=== PATIENT | female | born 1950 | race Caucasian/White ===

== ENCOUNTER 2016-12-26 14:52 | Inpatient (IN) | payer MEDICARE ==
--- NOTE | 2016-12-26 15:30 | NUR ---
PT ARRIVED TO ROOM, DIRECT ADMIT. PT ALERT AND ORIENTED WILL ADMIT
[2016-12-26] MEDS ORDERED: LANTUS INSULIN10 ML SC (15:50)
[2016-12-26] MEDS ORDERED: PHOSLO667 MG PO (15:50)
[2016-12-26] MEDS ORDERED: IPRATROPIUM BR42 MCG NASAL (15:50)
[2016-12-26] MEDS ORDERED: NEURONTIN600 MG PO (15:51)
[2016-12-26] MEDS ORDERED: SENSIPAR30 MG PO (15:51)
[2016-12-26] MEDS ORDERED: CLARITIN 10 MG10 MG PO (15:51)
[2016-12-26] MEDS ORDERED: HYDRALAZINE HCL25 MG PO (15:52)
[2016-12-26] MEDS ORDERED: CHRONULAC30 ML PO (15:52)
[2016-12-26] MEDS ORDERED: NEPHRO-VITE RX1 TAB PO (15:53)
[2016-12-26] MEDS ORDERED: MULTIPLE VITAMI1 TA1 PO (15:53)
[2016-12-26] MEDS ORDERED: METOPROLOL TART50 MG PO (15:53)
[2016-12-26] MEDS ORDERED: RENAGEL800 MG PO (15:53)
[2016-12-26] MEDS ORDERED: PROTONIX40 MG PO (15:53)
[2016-12-26] MEDS ORDERED: PLAVIX75 MG PO (15:53)
[2016-12-26] MEDS ORDERED: DULCOLAX10 MG/SUPP RC (15:54)
[2016-12-26] MEDS ORDERED: COLACE100 MG PO (15:54)
[2016-12-26] MEDS ORDERED: NYSTATIN1 PWD TOPICAL (15:55)
[2016-12-26] MEDS ORDERED: MIRALAX17 GM PO (15:55)
[2016-12-26] MEDS ORDERED: HYDROCODONE-APA1 TAB PO (15:55)
[2016-12-26 15:56] VITALS: BP 160/84; BMI 31.1
--- NOTE | 2016-12-26 16:08 | NUR ---
DURING ADMISSION ASSESSMENT SEVERAL WOUNDS NOTED. BUTTOCK/COCCYX AREA, REDNESS AND STG 2 NOTED. APPLIED MEPELEX BANADAGE. CDI LEFT HEEL UNSTAGEABLE PU ENTIRE SURFACE OF PT HEEL. CLEANSED WITH WOUND PRIMARY CARE PROVIDER. APPLIED ADAPTIC AND DRESSED WITH 4X4 AND CURLEX. R AKA STUMP WITH INCISION NO S/S INFECTION. APPLIED CLEAN GAUZE. ALL SIGNED AND DATED
[2016-12-26 16:18] LABS: BASOPHILS 0.3 % (0-2); EOSINOPHILS 4.9 % (0-7); HEMATOCRIT 41.6 % (36.0-48.0); HEMOGLOBIN 12.5 g/dL (12-16); IMMATURE GRANULOCYTES 0.3 % (0-5); LYMPHOCYTES 28.3 % (15-50); MCH 30.1 pg (26.0-34.0); MCV 100.2 fL (80.0-100.0); MEAN PLATELET VOLUME 9.7 fL (7.4-10.4); MONOCYTES 10.4 % (2-11); NEUTROPHILS 55.8 % (40-80); PLATELET COUNT 196 10x3/uL (130-400); RBC 4.15 10x6/uL (4.00-5.40); RDW 17.8 % (11.5-14.5); WBC 6.2 10x3/uL (4.8-10.8)
[2016-12-26 16:43] VITALS: BP 184/62
--- NOTE | 2016-12-26 16:58 | NUR ---
PT SITTING UP IN BED DENIES NEEDS
[2016-12-26 17:00] LABS: ANION GAP 17.5 mmol/L (8-16); CARBON DIOXIDE 21.1 mmol/L (21.0-32.0)
[2016-12-26 17:05] LABS: POTASSIUM - SERUM 6.6 mmol/L (3.5-5.1)
--- NOTE | 2016-12-26 17:48 | NUR ---
JESUS ATTEMPTED IV. THIS FRETTED STRING INSTRUMENT REPAIRER ALSO ATTEMPTED IV. VERONICA CHO CALLED AND ORDER RECEIVE FOR CONSULT FOR TRIALYSIS CATH.
--- NOTE | 2016-12-26 18:04 | NUR ---
LAB CALLED WITH CRITICAL K OF 6.6. ALBA URBINA NOTIFIED AND GAVE ORDERS. PT IS WITHOUT IV ACCESS AND UNABLE TO OBTAIN. DR MEIER CONSULTED FOR TRIALYSIS CATH PLACEMENT. HAVE TRIED BOTH NUMBERS WE HAVE ON FILE FOR HIM ARE NOT WORKING.... CALLED LAURIE RYAN AND NOTIFIED HER, SHE SAID TO ASK L[place]NA IN ER FOR NUMBER. SHE HAD HIS CELL PHONE TO CALL. VOICEMAIL. LEFT A MESSAGE TO CALL US BACK AT THE HOSPITAL. SHE ALSO GAVE ME A HOME PHONE NUMBER. CALLED THAT WELL WITH NO ANSWER. WILL AWAIT A CALL BACK
[2016-12-26 20:30] VITALS: BP 194/73
--- NOTE | 2016-12-26 20:31 | NUR ---
PHONE CALL FROM ALBA URBINA APN AND ORDERS TO MAKE SURE PT HAS TAKEN HER KAYEXALATE AND TO CONTINUE TO TRY TO GET IV ACCESS. CHANGE IV LASIX TO LASIX 80MG BY MOUTH FOR TONIGHT. ALBA STATES SHE MADE CONTACT WITH DR MEIER AND HE WILL NOT BE ABLE TO COME IN TONIGHT AND PLACE DIALYSIS ACCESS. CALL RECIEVED FROM DR MEIER STATING PT TO BE NPO AT MIDNIGHT. SIGN CONSENTS FOR TRIALYSIS PLACEMENT IN AM AND THEN PT CAN BE DIALYZED AND THEN HAVE HER FISTULAGRAM IN THE AFTERNOON.
--- NOTE | 2016-12-26 20:49 | NUR ---
ATTEMPTED TO SITE IV X 1 ATTEMPT. PT YELLING OUT, SAYING "ENOUGH!" THAT SHE HAS BEEN STUCK 9 TIMES TODAY AND WILL NOT TOLERATE IT ANYMORE. EXPLAINED THE IMPORTANCE OF GETTING IV ACCESS. PT TOO ANGRY TO CARE AT THIS POINT. WILL ALLOW HER TO CALM DOWN.
[2016-12-27 01:44] VITALS: BP 156/54
[2016-12-27 04:40] VITALS: BP 183/62
[2016-12-27 05:57] LABS: BASOPHILS 0.1 % (0-2); EOSINOPHILS 5.1 % (0-7); HEMATOCRIT 41.1 % (36.0-48.0); HEMOGLOBIN 12.8 g/dL (12-16); IMMATURE GRANULOCYTES 0.4 % (0-5); LYMPHOCYTES 23.1 % (15-50); MCH 31.2 pg (26.0-34.0); MCHC 31.1 g/dL (31.0-37.0); MCV 100.2 fL (80.0-100.0); MEAN PLATELET VOLUME 9.4 fL (7.4-10.4); MONOCYTES 12.5 % (2-11); NEUTROPHILS 58.8 % (40-80); RDW 17.8 % (11.5-14.5); WBC 6.9 10x3/uL (4.8-10.8)
[2016-12-27 06:13] LABS: PLATELET COUNT 256 10x3/uL (130-400)
[2016-12-27 06:22] LABS: ANION GAP 19.4 mmol/L (8-16); CALCIUM 7.3 mg/dL (8.5-10.1); CARBON DIOXIDE 21.2 mmol/L (21.0-32.0)
[2016-12-27 06:32] LABS: POTASSIUM - SERUM 6.6 mmol/L (3.5-5.1)
--- NOTE | 2016-12-27 07:01 | NUR ---
PT SIGNED TWO NEW SETS OF CONSENTS, ONE FOR TRIALYSIS TO BE DONE THIS AM PER DR MEIER AND A SECOND SET OF CONSENTS TO BE DONE AFTER SHE HAS BEEN DIALYZED, THEN SHE WILL HAVE THE FISTULAGRAM DONE. PT VOICED UNDERSTANDING.
[2016-12-27 09:15] VITALS: BP 213/76
[2016-12-27 13:51] VITALS: BMI 31.1
[2016-12-27 16:00] VITALS: BP 147/98
--- NOTE | 2016-12-27 17:00 | NUR ---
CANCELS FISTULAGRAM THROMBECTOMY. RESCHEDULE FOR 12/28/16. INFORM PATIENT OF CHANGE OF PLANS. PATIENT BEGINS CRYING. OFFER FOOD. REFUSE FOOD. WISHES TO GO HOME. EXPLAIN PROCEDURE PLANNED IN THE MORNING. CONTINUE PLAN OF CARE AND SAFETY PRECAUTIONS.
--- NOTE | 2016-12-27 19:38 | NUR ---
PT IN BED WITH EYES CLOSED AND CHEST RISING. EASILY AROUSED TO VERBAL STIMULI. NO CONCERNS NOTED AT THIS TIME. CALL LIGHT IN REACH. WILL CONTINUE TO OBSERVE.
[2016-12-27 20:00] VITALS: BP 171/74
--- NOTE | 2016-12-27 23:45 | NUR ---
PT IN BED WITH EYES CLOSED AND CHEST RISING. EASILY AROUSED AND CHEST RISING. NO CONCERNS NOTED AT THIS TIME. CALL LIGHT IN REACH. WILL CONTINUE TO OBSERVE.
[2016-12-28 04:00] VITALS: BP 165/52
[2016-12-28 08:19] LABS: BASOPHILS 0.3 % (0-2); EOSINOPHILS 2.6 % (0-7); HEMATOCRIT 42.6 % (36.0-48.0); HEMOGLOBIN 13.1 g/dL (12-16); IMMATURE GRANULOCYTES 0.4 % (0-5); LYMPHOCYTES 23.9 % (15-50); MCH 30.5 pg (26.0-34.0); MCHC 30.8 g/dL (31.0-37.0); MCV 99.1 fL (80.0-100.0); MEAN PLATELET VOLUME 9.3 fL (7.4-10.4); NEUTROPHILS 57.8 % (40-80); RDW 17.3 % (11.5-14.5)
[2016-12-28 08:24] LABS: PLATELET COUNT 195 10x3/uL (130-400)
[2016-12-28 08:35] VITALS: BP 167/60
[2016-12-28 08:47] LABS: ANION GAP 18.3 mmol/L (8-16); CALCIUM 8.4 mg/dL (8.5-10.1); CARBON DIOXIDE 21.4 mmol/L (21.0-32.0); POTASSIUM - SERUM 5.7 mmol/L (3.5-5.1)
--- NOTE | 2016-12-28 11:47 | NUR ---
FSBS OBTAINED WITH ANCHORAGE FOREIGN STUDENT ADVISER. BS 102. REPORTED TO NURSE CARING FOR THIS PATIENT TODAY.
[2016-12-28 12:40] VITALS: BP 116/76
--- NOTE | 2016-12-28 14:08 | NUR ---
ALERT AND ORIENTED X4. BATH AND LINEN CHANGE COMPLETE. PRE-OP COMPLETE. TRANSPORT TO SURGERY VIA BED. CONTINUE PLAN OF CARE AND SAFETY PRECAUTIONS.
--- NOTE | 2016-12-28 14:25 | OP ---
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 OPERATION PERFORMED: Insertion of a Trialysis acute dialysis catheter via left internal jugular vein with ultrasound and fluoroscopic guidance. SURGEON: Cristian Meier MD ANESTHESIA: Local with monitored per CORPORATE WEBMASTER, local was 1% lidocaine without epinephrine. PREOPERATIVE NOTE: This 66-year-old debilitated white female on chronic hemodialysis with a left arm fistula has suffered thrombosis due to a recurrent severe stenosis of the cephalic arch. Dr. Dobson successfully dilated and stented this cephalic arch lesion yesterday, but when he was dilating another stenosis in the proximal cephalic vein, the vein ruptured and the fistula re-thrombosed. She was admitted to the hospital with plans to take her to the operating room today to salvage the fistula with mechanical thrombectomy and stenting of the ruptured segment. She is, however, at this time hyperkalemic and needs to dialyze and will be brought to the OR now for placement of a Trialysis catheter. Hopefully, she can dialyze right away and be returned to the operating room later today for the declotting procedure. DESCRIPTION OF PROCEDURE: With the patient in the supine position, she was prepped and draped in a sterile manner. I examined the right internal jugular vein first with ultrasound and found it to be thrombosed and sclerotic above the level of head of the clavicle. There was no lumen apparent and I elected to go to the left side where the jugular vein was normal in appearance and fully compressible of normal caliber. Local anesthetic was infiltrated into the skin and subcutaneous tissues. A adri in the skin was made with an 11 blade and under continuous ultrasound guidance, a needle and guidewire were inserted into the left internal jugular vein and under fluoroscopy advanced into the right atrium. Two serial dilators were passed over the guidewire under fluoroscopy and lastly a 20-cm Trialysis catheter was inserted. Its tip reached into the mid right atrium and it had a good alignment and position. All 3 lumens were aspirated and free return of blood from each was confirmed. They were then flushed with saline and then heparin locked, clamped, and capped. The catheter was sutured to the skin at the entry site with 2-0 Prolene and a standard central venous dressing applied. The patient was then taken back to her room in stable condition and will go on to dialysis this morning. TRANSINT:[id number] Voice Confirmation ID: [id number] DOCUMENT ID: [id number] OPERATIVE REPORT [id number] DAVION RICHARDSON, CRISTIAN BEAVER at 1425 CC: DUSTY DOBSON MD [id number] DICTATION DATE: 12/27/1628 SILVERWARE BUFFER: 12/27/16 1121 ADM IN [facility] [address] [place] [address]
--- NOTE | 2016-12-28 15:45 | NUR ---
1503: PT HAS A RIGHT LEG BELOW KNEE AMPUTATION, AND LEFT FOOT WAS BANDADHED UP TO ANKLE. SCDS NOT PLACED ON PT TO NOT IRRITATE THE WOUND ON LEFT FOOT.
[2016-12-28 18:14] VITALS: BP 139/79
--- NOTE | 2016-12-28 18:14 | NUR ---
ARRIVE TO ROOM FROM SURGERY. LT FISTULAGRAM UNSUCCESSFUL THROMBECTOMY. LT CHEST TRIALYSIS REMOVED AND LT CHEST HEMOSPLIT PLACED. BP-139/79, P-77, R-20, T-98.8, O2-97% 2L NC. DENIES ANY NEEDS. BED LOCKED AND LOW. ICE PACK PLACED ON LT ARM ORDERED. CALL LIGHT IN REACH. TWO SIDERAILS UP.
[2016-12-28 19:00] VITALS: BP 217/78
--- NOTE | 2016-12-29 02:26 | NUR ---
CALL LIGHT IN REACH. WILL CONTINUE WITH PLAN OF CARE.
--- NOTE | 2016-12-29 07:10 | NUR ---
AM ROUNDS- PT IN BED, WITH EYES CLOSED, AROUSES EASILY TO VOICE. RESP EVEN AND UNLABORED. RT HAND IV SL. DRESSING NOTED TO LT ANKLE, PT DENIES ANY NEEDS AT THIS TIME. CALL LIGHT IN REACH, NAD NOTED, WILL CONTINUE TO MONITOR.
[2016-12-29 08:25] LABS: HEPATITIS C ANTIBODY 0.1 (0.0-0.9)
[2016-12-29 10:22] VITALS: BP 158/39
[2016-12-29 12:08] VITALS: BP 177/64
--- NOTE | 2016-12-29 13:21 | NUR ---
PROVIDED PT WITH ANOTHER PILLOW, AND PLACED IT UNDER HER HEAD. PT DENIES ANY NEEDS AT THIS TIME. NAD NOTED, WILL CONTINUE TO MONITOR.
--- NOTE | 2016-12-29 15:00 | NUR ---
PT C/O EARACHE, WANTS SOMETHING FOR PAIN, STATES IT STARTED THIS AM, BUT SHE IS JUST NOW INFORMING ME. DR. MYERS NOTIFIED, DR. MYERS STATED TO ORDER TYLENOL FOR PAIN. WILL PUT ORDER IN.
--- NOTE | 2016-12-29 17:27 | NUR ---
ADMINISTERED 650MG OF TYLENOL FOR PAIN LEVEL OF 8/10. BLOOD SUGAR OF 179. PT IN BED EATING DINNER, DENIES ANY OTHER NEEDS AT THIS TIME. CALL LIGHT IN REACH, NAD NOTED.
--- NOTE | 2016-12-29 19:16 | NUR ---
PATIENT IS ASLEEP IN BED, CALL LIGHT IN REACH.
[2016-12-29 20:00] VITALS: BP 142/81
[2016-12-30] VITALS: BP 190/74
--- NOTE | 2016-12-30 05:40 | NUR ---
LYING IN BED WITH CALL LIGHT IN REACH. WILL CONTINUE WITH PLAN OF CARE.
--- NOTE | 2016-12-30 06:45 | NUR ---
LAB TO BE DRAWN DURING DIALYSIS PER PT REQUEST AFTER UNSUCCESSFUL MANGLE ROLL OPERATOR ATTEMPT.
--- NOTE | 2016-12-30 07:54 | NUR ---
PT LAYING TO LEFT SIDE SLEEPING NO S/S DISTRESS NOTED RR EVEN AND UNLABORED. WILL CONT TO MONITOR
[2016-12-30 08:00] VITALS: BP 153/45
--- NOTE | 2016-12-30 09:00 | NUR ---
DRESSING CHANGE TO LEFT HEEL PER ORDER. [facility] CDI, SIGNED AND DATED.
--- NOTE | 2016-12-30 11:00 | NUR ---
PT TO DIALYSIS
--- NOTE | 2016-12-30 12:00 | NUR ---
LAB CALLED AND ASKED IF PTS LAB TUBES WERE SENT DOWN WITH HER TO DIALYSIS. EXPLAINED TO MAINTENANCE PERSON THAT NO TUBES HAD BEEN GIVEN TO ME AND I DIDNT SEE ANY IN PT ROOM OR IN HER BED. THEY SAID THEY WOULD GO DOWN TO DIALYSIS AND GET LAB DRAW, PT STILL IN DIALYSIS.
--- NOTE | 2016-12-30 13:26 | NUR ---
PT STILL IN DIALYSIS. PT TO GO HOME TODAY TO [place] IN [facility].
--- NOTE | 2016-12-30 13:58 | NUR ---
LAB JUST CALLED AGAIN AND ASKED AGAIN IF I HAD THE TUBES AND IF I SENT THEM DOWN WITH PT TO DIALYSIS. EXPLAINED TO THIS DIRECTOR OF PRODUCT MARKETING THAT SOMEONE JUST CALLED AND ASKED THE SAME QUESTION AND SAID THAT SHE WAS GOING TO GO DOWN AND GET THEM DRAWED. SHE SAID THAT SHE IS THE AFTERNOON SHIFT AND THAT WAS MORNING SHIFT, SO SHE WILL DOUBLE CHECK
[2016-12-30 14:27] LABS: BASOPHILS 0.2 % (0-2); EOSINOPHILS 3.2 % (0-7); HEMATOCRIT 41.7 % (36.0-48.0); HEMOGLOBIN 12.9 g/dL (12-16); IMMATURE GRANULOCYTES 0.2 % (0-5); LYMPHOCYTES 20.8 % (15-50); MCH 30.5 pg (26.0-34.0); MCHC 30.9 g/dL (31.0-37.0); MCV 98.6 fL (80.0-100.0); MEAN PLATELET VOLUME 9.7 fL (7.4-10.4); MONOCYTES 13.1 % (2-11); NEUTROPHILS 62.5 % (40-80); PLATELET COUNT 168 10x3/uL (130-400); RBC 4.23 10x6/uL (4.00-5.40); RDW 16.7 % (11.5-14.5); WBC 6.3 10x3/uL (4.8-10.8)
[2016-12-30 14:44] LABS: ANION GAP 15.5 mmol/L (8-16); CALCIUM 8.5 mg/dL (8.5-10.1); CARBON DIOXIDE 26.1 mmol/L (21.0-32.0); CREATININE - SERUM 3.1 mg/dL (0.6-1.3); POTASSIUM - SERUM 3.6 mmol/L (3.5-5.1)
--- NOTE | 2016-12-30 16:01 | NUR ---
CALLED REPORT TO LIANA AT [facility].
--- NOTE | 2016-12-30 16:09 | NUR ---
WENT OVER DC PAPERWORK WITH PT, PT VERBALIZES UNDERSTANDING. PT IS WITHOUT IV ACCESS OR TELE TO DC. PT DRESSED AND READY TO GO. REPORT ALREADY CALLED. JUST WAITING ON DRIVER'S LICENSE EXAMINER TO PICK PT UP TO GO BACK [facility] OR IN [facility].
[2016-12-30 18:02] VITALS: BP 175/71
--- NOTE | 2016-12-30 18:09 | NUR ---
PT WAS WHEELED OUT BY LOCATED WITHIN [facility]
--- NOTE | 2017-01-10 13:00 | OP ---
PATIENT NAME: DAVION MEDINA MEDICAL RECORD: [id number] :48 LOCATION:D. D.2130 ADMISSION DATE:12/26/16 SURGEON: CRISTIAN MEIER MD DATE OF OPERATION: 12/28/2016 PREOPERATIVE DIAGNOSIS: End-stage renal disease and dependence on hemodialysis and other mechanical complication, i.e., thrombosis of left arm brachiocephalic arteriovenous fistula. POSTOPERATIVE DIAGNOSIS: End-stage renal disease and dependence on hemodialysis and other mechanical complication, i.e., thrombosis of left arm brachiocephalic arteriovenous fistula. OPERATION PERFORMED: Percutaneous access of fistula times 2 with ultrasound guidance, fistulogram, AngioJet mechanical thrombolysis and balloon angioplasty, then insertion of a left internal jugular arrow vector flow tunneled dialysis catheter under fluoroscopy and removal of Trialysis catheter. SURGEON: Cristian Meier MD ANESTHESIA: General with LMA per RUBBER GOODS CUTTER FINISHER. REFERRING PHYSICIAN: Dusty Barrios MD PREOPERATIVE NOTE: Davion Medina is a 66-year-old white female, halfway resident from [place]. She has end-stage renal disease and is on chronic hemodialysis and has been dialyzing for some time now with a left brachiocephalic AV fistula. She has had surgical intervention to help with the fistula. I believe, she has had an elevation procedure of the vein a couple months ago. I dilated a severe stenosis of the cephalic arch and she returned 2 days ago to [facility] with a thrombosed AV fistula and Dr. Barrios performed a procedure and dilated and distended the cephalic arch successfully; however, during dilatation of additional stenosis within the cephalic vein, there was a vascular rupture and resultant recurrent thrombosis. She was admitted to the hospital on the following morning because her potassium was elevated. She was taken to the OR and Trialysis catheter inserted with ultrasound for fluoroscopic guidance, the catheter was inserted via the left internal jugular vein because the right internal jugular vein was occluded having been used in the past for catheter access. She had dialysis and was then returned to the operating room again yesterday afternoon to try to salvage the fistula, but the OR schedule would not permit and she was rescheduled for today. PROCEDURE: With patient under general anesthesia with LMA per RUBBER GOODS CUTTER FINISHER, she was prepped and draped in a sterile manner. The fistula was examined with ultrasound and noted to be surprisingly small or contracted and contained a large amount of rather organized or organized thrombus. I accessed the fistula near the arterial anastomosis in an antegrade direction using ultrasound guidance and micropuncture technique and this led up to placement of a 6-Bulgarian introducer sheath. I attempted to pass a guidewire proximally and was unable to get through the area of recent rupture. I tried this with an angled burned guiding catheter and an angled Glidewire and was just unsuccessful. Contrast injection demonstrated extensive thrombosis and rupture with extravasation of contrast. I then was able to access the cephalic vein medially in the shoulder area, really just lateral to the lateral end of the recently inserted cephalic arch stent and this was done with ultrasound guidance and micropuncture OPERATIVE REPORT [id number] DAVION MEDINA technique and another 6-Bulgarian sheath was inserted. An angled Glidewire was inserted again and this did pass down to the arterial anastomosis. I used the AngioJet catheter device to lyse and remove thrombus from the JA and body of the fistula after which I then was able to pass the antegrade catheter from the introducer near the arterial anastomosis across the area of rupture and extravasation and into the cephalic arch down into the central venous system. I then used an 8 mm angioplasty balloon to macerate thrombus and dilate stenoses from the cephalic arch distally towards the arterial anastomosis while occluding the arterial or Juxta arterial segment with digital compression. There were noted to be a series of stenosis present which were fibrous and dilated with considerable pressure and some incompletely. When this was done, repeated contrast injection revealed very ratty irregular vein which did not to me offer any hope for salvage of the fistula even were I to stent it extensively. I should note that very early in the process during the insertion of the 1st introducer sheath, she was systemically heparinized with 3000 units of heparin systemically. So after the balloon angioplasties and mechanical thrombolysis, I elected to terminate the procedure without ever having restored continuous pulsatile flow in the fistula. The introducer was removed and the puncture site sutured with 4-0 Prolene [id number]. The patient's Trialysis catheter and left neck and chest were then prepped and draped as well. The Trialysis catheter was removed over a guidewire and the guidewire manipulated into the right atrium. I passed a dilator and then a peel-away dilator introducer. I made a incision beneath the clavicle and brought a 23 cm HemoSplit catheter through the subcutaneous tunnel and then tried to insert it through the peelaway sheath. This was unsuccessful as the catheter and also in addition, a guidewire passed preferentially and every time up into the right brachiocephalic vein rather than down into the superior vena cava. I eventually replaced this with a modular Arrow VectorFlow catheter, which was inserted over an angled roadrunner wire down through the superior vena cava into the right atrium really without difficulty and it was then pulled through the same subcutaneous tunnel and connected to the modular part. Both lumens were aspirated, free return of blood confirmed. They were then flushed with saline and then heparin locked with heparin 100 units per cc. The catheter was sutured to the skin near the entry site with 2-0 Prolene and the incisions approximated with interrupted inverted intracuticular 3-0 Vicryl and Dermabond glue. Sterile dressings were applied and the patient then awakened and taken to the recovery room. Blood loss was about 50 cc and unreplaced. All sponges, instruments, and needles were accounted for. No drain was used and no surgical specimen was submitted for histopathology. A chest x-ray was requested for documentation purposes in the recovery room. The patient will likely have dialysis here and then be discharged to return to her halfway in [place] tomorrow. She will be catheter dependent for now with her tunneled dialysis catheter. She will need further dialysis access and it is my recommendation that she be operated on and a prosthetic graft implanted in the left upper extremity sometime in the next 2-6 weeks. TRANSINT:[id number] Voice Confirmation ID: [id number] DOCUMENT ID: [id number] OPERATIVE REPORT [id number] DAVION MEDINA, CRISTIAN BEAVER at 1300 CC: [id number] DICTATION DATE: 12/28/16 1737 GENERAL SCIENCE TEACHER: 12/28/16 1833 DIS IN 12/30/16 [facility] [address] [place] [address]
== END 2016-12-30 18:10 | DRG 252 ==
LOC: D.M2 14:52
PROVIDERS: Surgery; ADMIT Internal Medicine Nephrology
PROC: B5181ZA Fluoroscopy of Superior Vena Cava using Low Osmolar Contrast, Guidance (ICD-10-PCS; 2016-12-27)
PROC: B548ZZA Ultrasonography of Superior Vena Cava, Guidance (ICD-10-PCS; 2016-12-27)
PROC: 02HV33Z Insertion of Infusion Device into Superior Vena Cava, Percutaneous Approach (ICD-10-PCS; principal; 2016-12-27 07:00)
PROC: B51W1ZZ Fluoroscopy of Dialysis Shunt/Fistula using Low Osmolar Contrast (ICD-10-PCS; 2016-12-28)
PROC: 05CA3ZZ Extirpation of Matter from Left Brachial Vein, Percutaneous Approach (ICD-10-PCS; 2016-12-28)
PROC: 057A3ZZ Dilation of Left Brachial Vein, Percutaneous Approach (ICD-10-PCS; 2016-12-28)
PROC: 05HN33Z Insertion of Infusion Device into Left Internal Jugular Vein, Percutaneous Approach (ICD-10-PCS; 2016-12-28)
DX: T82.868A Thrombosis due to vascular prosthetic devices, implants and grafts, initial encounter (principal); N18.6 End stage renal disease; I12.0 Hypertensive chronic kidney disease with stage 5 chronic kidney disease or end stage renal disease; Y83.8 Other surgical procedures as the cause of abnormal reaction of the patient, or of later complication, without mention of misadventure at the time of the procedure; E11.22 Type 2 diabetes mellitus with diabetic chronic kidney disease; Z99.2 Dependence on renal dialysis; E87.5 Hyperkalemia

== ENCOUNTER 2017-06-10 16:43 | Inpatient (IN) | payer MEDICARE ==
[~2017-06-10] VITALS: Ht 157.5 cm; Wt 87.1 kg
--- NOTE | ~2017-06-10 | OP ---
PATIENT NAME: DAVION MEDINA MEDICAL RECORD: [id number] :48 LOCATION:D. D.2139 ADMISSION DATE:06/10/17 SURGEON: CRISTIAN MEIER MD DATE OF OPERATION: 06/12/2017 DIAGNOSES: Dialysis access failure with thrombosis of AV fistula, also hyperkalemia, dependence on renal dialysis for end-stage renal disease. OPERATIONS PERFORMED: Ultrasound-guided access of the right internal jugular vein with performance of superior vena cavogram, difficult dilation of strictured internal jugular and brachiocephalic veins, and insertion of a 19-cm HemoSplit tunneled dialysis catheter. SURGEON: Cristian Meier MD ANESTHESIA: Local MAC with monitoring per COIN COUNTER AND WRAPPER. REFERRING PHYSICIAN: Dusty Dobson MD PREOP NOTE: Ms. Medina is an elderly lady with end-stage renal disease, on chronic hemodialysis in [place], with a left arm AV graft which is thrombosed. She is hyperkalemic and thrombophilic and needs a temporary catheter before she can later on have a definitive operation on her AV graft. She is considered too ill for much more than monitoring of local anesthesia. With the patient monitored per COIN COUNTER AND WRAPPER in supine position, she was prepped and draped in a sterile manner. I examined the internal jugular veins with duplex ultrasound and found the left internal jugular vein to be small and sclerotic. On the right, it was small and sclerotic but larger and I thought possibly wire might be able to be passed centrally. I did an ultrasound-guided micropuncture access and was able to pass a 0.018 wire down the internal jugular vein into the brachiocephalic and then into the superior vena cava. I passed a 4-Irish catheter over that and performed a superior venacavogram, which demonstrated severe stenosis of IJ and brachiocephalic veins. I was then able to pass a larger wire. Then, serial Dotter-type dilators were passed over the 0.035 guidewire and I was able to pass a dilator peel-away introducer sheath. I chose a 19-cm HemoSplit and inserted it through a separate more remote infraclavicular insertion site. I pulled it through the subcutaneous tunnel and then inserted it through the peel-away sheath. I was able to place the tip of the sheath well down into the right atrium. Both lumens were accessed and aspirated. Free return of blood confirmed. They were then flushed with saline, clamped and capped, and the catheter sutured to the skin near the entry site with 2-0 Prolene. The cervical wound was closed with interrupted inverted 3-0 Vicryl and Dermabond glue. The entry site was dressed with chlorhexidine-containing biodisc and further sterile CVL dressings. The cervical incision was dressed with Maxorb Ag and Tegaderm with Cavilon skin prep. The patient was then taken to the recovery room in stable condition. She will be going on to dialysis later this evening. I plan to return her to the operating room probably next week to try to work on her fistula. TRANSINT:[id number] Voice Confirmation ID: [id number] DOCUMENT ID: [id number] OPERATIVE REPORT [id number] DAVION MEDINA, CRISTIAN BEAVER at 1241 CC: DUSTY DOBSON [id number] DICTATION DATE: 06/20/17 1737 INTERNATIONAL BANKER: 06/20/17 1859 DIS IN 06/16/17 [facility] [address] [place] [address]
[~2017-06-10 16:43] MED LIST: CHRONULAC30 ML PO; CLARITIN 10 MG10 MG PO; COLACE100 MG PO; DULCOLAX10 MG/SUPP RC; HYDRALAZINE HCL25 MG PO; HYDROCODONE-APA1 TAB PO; IPRATROPIUM BR42 MCG NASAL; LANTUS INSULIN10 ML SC; METOPROLOL TART50 MG PO; MIRALAX17 GM PO; MULTIPLE VITAMI1 TA1 PO; NEPHRO-VITE RX1 TAB PO; NEURONTIN600 MG PO; NYSTATIN1 PWD TOPICAL; PHOSLO667 MG PO; PLAVIX75 MG PO; PROTONIX40 MG PO; RENAGEL800 MG PO; SENSIPAR30 MG PO
[2017-06-10 19:00] VITALS: BP 156/63
[2017-06-10 20:30] LABS: BASOPHILS 0.2 % (0-2); EOSINOPHILS 4.2 % (0-7); HEMOGLOBIN 8.7 g/dL (12-16); LYMPHOCYTES 20.5 % (15-50); MCH 28.5 pg (26.0-34.0); MCHC 31.1 g/dL (31.0-37.0); MCV 91.8 fL (80.0-100.0); MONOCYTES 11.2 % (2-11); NEUTROPHILS 61.9 % (40-80); RBC 3.05 10x6/uL (4.00-5.40); RDW 14.6 % (11.5-14.5); WBC 6.4 10x3/uL (4.8-10.8)
[2017-06-10 20:31] LABS: PLATELET COUNT 231 10x3/uL (130-400)
[2017-06-10 20:46] LABS: ALBUMIN 2.4 g/dL (3.4-5.0); ANION GAP 17.1 mmol/L (8-16); BILIRUBIN - TOTAL 0.2 mg/dL (0.2-1.3); CALCIUM 8.2 mg/dL (8.5-10.1); CARBON DIOXIDE 24.7 mmol/L (21.0-32.0); CREATININE - SERUM 6.6 mg/dL (0.6-1.3); POTASSIUM - SERUM 5.8 mmol/L (3.5-5.1); PROTEIN - SERUM 6.7 g/dL (6.4-8.2)
[2017-06-11 01:10] VITALS: BP 145/56
[2017-06-11 05:28] VITALS: BP 138/59
[2017-06-11 06:29] VITALS: BMI 35.2
[2017-06-11 08:56] LABS: BASOPHILS 0.1 % (0-2); EOSINOPHILS 4.5 % (0-7); HEMATOCRIT 26.8 % (36.0-48.0); HEMOGLOBIN 8.2 g/dL (12-16); IMMATURE GRANULOCYTES 0.7 % (0-5); LYMPHOCYTES 27.8 % (15-50); MCH 28.2 pg (26.0-34.0); MCHC 30.6 g/dL (31.0-37.0); MCV 92.1 fL (80.0-100.0); MEAN PLATELET VOLUME 8.6 fL (7.4-10.4); NEUTROPHILS 56.9 % (40-80); RBC 2.91 10x6/uL (4.00-5.40); RDW 14.7 % (11.5-14.5); WBC 6.9 10x3/uL (4.8-10.8)
[2017-06-11 09:02] LABS: PLATELET COUNT 284 10x3/uL (130-400)
[2017-06-11 09:12] LABS: ALBUMIN 2.2 g/dL (3.4-5.0); BILIRUBIN - TOTAL 0.26 mg/dL (0.2-1.3); CALCIUM 8.6 mg/dL (8.5-10.1); CARBON DIOXIDE 25.8 mmol/L (21.0-32.0); CREATININE - SERUM 7.1 mg/dL (0.6-1.3); PHOSPHOROUS 6.7 mg/dL (2.5-4.9)
[2017-06-11 09:27] VITALS: BP 165/51
[2017-06-11 09:31] LABS: ANION GAP 14.1 mmol/L (8-16); POTASSIUM - SERUM 5.9 mmol/L (3.5-5.1)
[2017-06-11 12:09] VITALS: BP 152/54
[2017-06-11 15:05] VITALS: BP 147/66
[2017-06-11 20:00] VITALS: BP 145/83
[2017-06-11 22:59] LABS: INR 1.03 (0.85-1.17); PROTIME 13.1 SECONDS (11.6-15.0)
[2017-06-12] VITALS: BP 135/94
[2017-06-12 04:00] VITALS: BP 143/59
[2017-06-12 06:59] LABS: BASOPHILS 0.1 % (0-2); EOSINOPHILS 3.9 % (0-7); HEMATOCRIT 27.4 % (36.0-48.0); HEMOGLOBIN 8.3 g/dL (12-16); IMMATURE GRANULOCYTES 0.5 % (0-5); LYMPHOCYTES 22.3 % (15-50); MCH 27.9 pg (26.0-34.0); MCHC 30.3 g/dL (31.0-37.0); MCV 92.3 fL (80.0-100.0); MEAN PLATELET VOLUME 8.8 fL (7.4-10.4); MONOCYTES 11.1 % (2-11); NEUTROPHILS 62.1 % (40-80); PLATELET COUNT 336 10x3/uL (130-400); RBC 2.97 10x6/uL (4.00-5.40); RDW 14.5 % (11.5-14.5)
[2017-06-12 07:08] LABS: ANION GAP 17.4 mmol/L (8-16); CALCIUM 8.4 mg/dL (8.5-10.1); CARBON DIOXIDE 24.3 mmol/L (21.0-32.0); CREATININE - SERUM 7.6 mg/dL (0.6-1.3); PHOSPHOROUS 6.2 mg/dL (2.5-4.9)
[2017-06-12 07:23] LABS: POTASSIUM - SERUM 6.7 mmol/L (3.5-5.1)
[2017-06-12 08:25] VITALS: BP 136/87
[2017-06-12 11:02] VITALS: BP 130/81
[2017-06-12 11:17] VITALS: BP 135/107
[2017-06-12 14:12] VITALS: Ht 157.5 cm; Wt 87.1 kg
[2017-06-12 16:23] VITALS: BP 129/78
[2017-06-13] VITALS: BP 130/74
[2017-06-13 00:18] LABS: ANION GAP 17.3 mmol/L (8-16); CALCIUM 8.4 mg/dL (8.5-10.1); CARBON DIOXIDE 19.3 mmol/L (21.0-32.0); CREATININE - SERUM 6.5 mg/dL (0.6-1.3)
[2017-06-13 00:22] LABS: POTASSIUM - SERUM 6.6 mmol/L (3.5-5.1)
[2017-06-13 04:00] VITALS: BP 116/44
[2017-06-13 08:07] VITALS: BP 132/75
[2017-06-13 10:46] VITALS: BP 128/70
[2017-06-13 14:00] LABS: BASOPHILS 0.2 % (0-2); EOSINOPHILS 0.9 % (0-7); HEMATOCRIT 24.1 % (36.0-48.0); IMMATURE GRANULOCYTES 0.6 % (0-5); LYMPHOCYTES 11.4 % (15-50); MCH 28.1 pg (26.0-34.0); MCHC 31.1 g/dL (31.0-37.0); MEAN PLATELET VOLUME 8.5 fL (7.4-10.4); MONOCYTES 10.7 % (2-11); NEUTROPHILS 76.2 % (40-80); RBC 2.67 10x6/uL (4.00-5.40); RDW 14.3 % (11.5-14.5)
[2017-06-13 14:03] LABS: HEMOGLOBIN 7.5 g/dL (12-16); MCV 90.3 fL (80.0-100.0); PLATELET COUNT 259 10x3/uL (130-400)
[2017-06-13 14:34] LABS: ANION GAP 19.2 mmol/L (8-16); CALCIUM 7.7 mg/dL (8.5-10.1); CARBON DIOXIDE 23.8 mmol/L (21.0-32.0); CREATININE - SERUM 5.8 mg/dL (0.6-1.3); PHOSPHOROUS 5.4 mg/dL (2.5-4.9); VANCOMYCIN - RANDOM 0.7 ug/mL (10.0-20.0)
[2017-06-13 19:59] VITALS: BP 112/40
[2017-06-14] VITALS: BP 118/50
[2017-06-14 04:00] VITALS: BP 149/46
[2017-06-14 08:35] VITALS: BP 132/68
[2017-06-14 09:59] LABS: BASOPHILS 0.3 % (0-2); HEMATOCRIT 24.4 % (36.0-48.0); HEMOGLOBIN 7.6 g/dL (12-16); IMMATURE GRANULOCYTES 0.3 % (0-5); LYMPHOCYTES 18.9 % (15-50); MCHC 31.1 g/dL (31.0-37.0); MEAN PLATELET VOLUME 8.6 fL (7.4-10.4); MONOCYTES 12.3 % (2-11); NEUTROPHILS 66.2 % (40-80); PLATELET COUNT 255 10x3/uL (130-400); RBC 2.71 10x6/uL (4.00-5.40); RDW 14.5 % (11.5-14.5)
[2017-06-14 10:18] LABS: ANION GAP 14.3 mmol/L (8-16); CALCIUM 8.1 mg/dL (8.5-10.1); CREATININE - SERUM 4.8 mg/dL (0.6-1.3); PHOSPHOROUS 4.9 mg/dL (2.5-4.9)
[2017-06-14 10:23] LABS: POTASSIUM - SERUM 4.3 mmol/L (3.5-5.1)
[2017-06-14 13:01] VITALS: BP 101/38
[2017-06-14 18:39] VITALS: BP 97/34
[2017-06-14 21:17] VITALS: BP 133/59
[2017-06-15 01:28] VITALS: BP 108/39
[2017-06-15 05:36] VITALS: BP 138/47
[2017-06-15 06:28] LABS: BASOPHILS 0.2 % (0-2); EOSINOPHILS 1.5 % (0-7); HEMATOCRIT 25.4 % (36.0-48.0); HEMOGLOBIN 7.8 g/dL (12-16); IMMATURE GRANULOCYTES 0.4 % (0-5); MCH 28.2 pg (26.0-34.0); MCHC 30.7 g/dL (31.0-37.0); MCV 91.7 fL (80.0-100.0); MEAN PLATELET VOLUME 8.7 fL (7.4-10.4); MONOCYTES 14.7 % (2-11); NEUTROPHILS 67.2 % (40-80); PLATELET COUNT 282 10x3/uL (130-400); RBC 2.77 10x6/uL (4.00-5.40); RDW 14.2 % (11.5-14.5); WBC 8.1 10x3/uL (4.8-10.8)
[2017-06-15 06:53] LABS: ANION GAP 15.3 mmol/L (8-16); CALCIUM 8.1 mg/dL (8.5-10.1); CARBON DIOXIDE 27.7 mmol/L (21.0-32.0); CREATININE - SERUM 4.1 mg/dL (0.6-1.3)
[2017-06-15 06:56] LABS: PHOSPHOROUS 3.6 mg/dL (2.5-4.9)
[2017-06-15 08:36] VITALS: BP 146/44
[2017-06-15 11:52] VITALS: BP 114/36
[2017-06-15 15:40] VITALS: BP 149/53
[2017-06-15 20:37] VITALS: BP 126/48
[2017-06-16 00:46] VITALS: BP 107/37
[2017-06-16 05:50] VITALS: BP 113/32
[2017-06-16 07:55] VITALS: BP 107/46
[2017-06-16 15:35] VITALS: BP 119/38
== END 2017-06-16 17:31 | DRG 314 ==
LOC: D.ER 16:43 → D.M2 20:33 → D.EDHOLD 20:33 → D.M2 21:21
PROVIDERS: Family Medicine; Internal Medicine Nephrology; Surgery
PROC: 0JH Subcutaneous Tissue and Fascia, Insertion (ICD-10-PCS; 2017-06-12)
PROC: 05HB33Z Insertion of Infusion Device into Right Basilic Vein, Percutaneous Approach (ICD-10-PCS; 2017-06-12)
PROC: B54MZZA Ultrasonography of Right Upper Extremity Veins, Guidance (ICD-10-PCS; 2017-06-12)
PROC: 5A1D70Z Performance of Urinary Filtration, Intermittent, Less than 6 Hours Per Day (ICD-10-PCS; 2017-06-12)
PROC: B5181ZZ Fluoroscopy of Superior Vena Cava using Low Osmolar Contrast (ICD-10-PCS; principal; 2017-06-12 12:00)
DX: T82.858A Stenosis of other vascular prosthetic devices, implants and grafts, initial encounter (principal); N18.6 End stage renal disease; I12.0 Hypertensive chronic kidney disease with stage 5 chronic kidney disease or end stage renal disease; Y83.8 Other surgical procedures as the cause of abnormal reaction of the patient, or of later complication, without mention of misadventure at the time of the procedure; E11.22 Type 2 diabetes mellitus with diabetic chronic kidney disease; Z99.2 Dependence on renal dialysis; E87.5 Hyperkalemia; D63.1 Anemia in chronic kidney disease; Z89.511 Acquired absence of right leg below knee; E83.39 Other disorders of phosphorus metabolism; S91.302A Unspecified open wound, left foot, initial encounter